=== PATIENT | female | born 1935 | race Caucasian/White ===

== ENCOUNTER 2017-06-08 10:08 | Day surgery (SDC) | payer MEDICARE, BC ==
[~2017-06-08 10:08] MED LIST: ACETAMINOPHEN 325 MG TABLET PO PRN; ACETYLCHOLINE CHLORIDE 20 DROP KIT IO PRN; BUPIVACAINE HCL/PF 30 ML VIAL IJ PRN; CYCLOPENTOLATE HCL 20 DROP BTL LEFTEYE PRN; DEXTROSE 5%-0.5 NORMAL SALINE 1,000 ML IV PRN; EPINEPHrine 1 MG/ML AMPUL IO PRN; HYALURONATE SODIUM 0.4 ML DISP.SYRIN IO PRN; HYALURONATE SODIUM 0.85 ML DISP.SYRIN IO PRN; LIDOCAINE HCL/PF 200 MG/5 ML AMPUL TP PRN; LIDOCAINE HCL/PF 5 ML VIAL IO PRN; NORMAL SALINE 3 ML BOX IV PRN; TETRACAINE HCL 150 DROP BTL OP PRN
[2017-06-08] MEDS: TROPICAMIDE 150 DROP BTL LEFTEYE PRN ×3 (10:55→11:15)
[2017-06-08] MEDS: PHENYLEPHRINE HCL 50 DROP BTL LEFTEYE PRN ×3 (10:55→11:15)
[2017-06-08 13:14] VITALS: BP 149/73
== END 2017-06-08 10:09 | disposition home or self-care (01) ==
LOC: AMB 10:08
PROVIDERS: ATTEND Ophthalmology
PROC: 08RK3JZ Replacement of Left Lens with Synthetic Substitute, Percutaneous Approach (ICD-10-PCS; principal; 2017-06-08 11:45)
DX: H26.9 Unspecified cataract (principal); I10 Essential (primary) hypertension; M81.0 Age-related osteoporosis without current pathological fracture; Z87.891 Personal history of nicotine dependence; Z68.20 Body mass index [BMI] 20.0-20.9, adult

== ENCOUNTER 2017-07-06 10:07 | Day surgery (SDC) | payer MEDICARE, BC ==
[~2017-07-06 10:07] MED LIST changes: -CYCLOPENTOLATE HCL 20 DROP BTL LEFTEYE PRN; +CYCLOPENTOLATE HCL 20 DROP BTL RIGHTEYE PRN
[2017-07-06] MEDS: PHENYLEPHRINE HCL 50 DROP BTL RIGHTEYE PRN ×3 (10:26→11:01)
[2017-07-06] MEDS: TROPICAMIDE 150 DROP BTL RIGHTEYE PRN ×3 (10:26→11:01)
[2017-07-06 12:47] VITALS: BP 121/73
== END 2017-07-06 10:08 | disposition home or self-care (01) ==
LOC: AMB 10:07
PROVIDERS: ATTEND Ophthalmology
PROC: 08RJ3JZ Replacement of Right Lens with Synthetic Substitute, Percutaneous Approach (ICD-10-PCS; principal; 2017-07-06 11:45)
DX: H26.9 Unspecified cataract (principal); I10 Essential (primary) hypertension; M81.0 Age-related osteoporosis without current pathological fracture; Z87.891 Personal history of nicotine dependence; Z68.20 Body mass index [BMI] 20.0-20.9, adult